=== PATIENT | male | born 1940 | race Caucasian/White ===

== ENCOUNTER → 2023-09-01 12:50 | Outpatient (REF) | payer OTHER, SELFPAY | LOC: RAD 12:50 | PROVIDERS: ATTENDING PHYSICIAN Internal Medicine Geriatric Medicine | DX: E78.2 Mixed hyperlipidemia (principal); I10 Essential (primary) hypertension; Z96.651 Presence of right artificial knee joint; M17.11 Unilateral primary osteoarthritis, right knee; T70.0XXA Otitic barotrauma, initial encounter; Z13.31 Encounter for screening for depression; J96.92 Respiratory failure, unspecified with hypercapnia | CPT/HCPCS: 71046 ==

== ENCOUNTER → 2024-02-09 11:23 | Outpatient (REF) | payer OTHER, SELFPAY ==
[2024-02-09 12:43] LABS: NT-proBNP 97.6 pg/ml
== END ==
LOC: REG 11:23
PROVIDERS: ATTENDING PHYSICIAN Internal Medicine Cardiovascular Disease; FAMILY PHYSICIAN Internal Medicine Geriatric Medicine; REFERRING PHYSICIAN Nurse Practitioner Family
DX: I10 Essential (primary) hypertension (principal); R60.9 Edema, unspecified; R60.0 Localized edema
CPT/HCPCS: 36415; 71046; 83880

== ENCOUNTER → 2024-03-31 08:59 | Outpatient (REF) | payer OTHER, SELFPAY | LOC: RAD 08:59 | PROVIDERS: ATTENDING PHYSICIAN Nurse Practitioner Family; FAMILY PHYSICIAN Internal Medicine Geriatric Medicine | DX: R60.0 Localized edema (principal) | CPT/HCPCS: 93970 ==

== ENCOUNTER → 2024-08-25 07:03 | Outpatient (REF) | payer OTHER, SELFPAY | LOC: HWRCS 07:03 | PROVIDERS: ATTENDING PHYSICIAN Internal Medicine Geriatric Medicine | DX: E66.01 Morbid (severe) obesity due to excess calories (principal); E78.2 Mixed hyperlipidemia; I10 Essential (primary) hypertension | CPT/HCPCS: 78452; 93017; A9500; J2785 ==

== ENCOUNTER 2024-08-25 13:05 | Day surgery (SDC) | payer OTHER, SELFPAY ==
[2024-08-25] VITALS (24 sets, daily range): BP systolic 110–191; BP diastolic 48–88
--- NOTE | 2024-08-25 09:45 | ED.GENMED ---
History of Present Illness
<Homero Isaac Jr., PA-C - Last Filed: 08/25/24 10:53>
General
Chief Complaint: Heart Rate Problem
Source: patient
Exam Limitations: none
Time Seen by Provider: 08/25/24 09:32
Nursing documentation reviewed up to this point in time: agreed with
History of Present Illness
History of Present Illness:
83-year-old male past medical history of hypertension hyperlipidemia presenting to the emergency department after having EKG as an outpatient showing third-degree heart block. He was scheduled to have a stress test today. Had initial preliminary
EKG that showed third-degree heart block EMS was then called he was brought in. He has been asymptomatic throughout the day today. The reason for the stress test was ordered by the primary care doctor with concerns of exertional dyspnea that he
has been having over the past few months. Denies any specific chest pain any recent illness or palpitations. No new medications.
Past History
<Homero Isaac Jr., PA-C - Last Filed: 08/25/24 10:53>
Past History
ED Past Medical History: HTN, Hypercholesterolemia, NIDDM and Other (dvt)
ED Past Surgical History: Orthopedic (Right total knee, Left total knee removed due to infection. Spacer placed)
Social History
Tobacco: Non-smoker
Alcohol: None
Drug: None
Personal:
Living: with family
Review of Systems
<Homero Isaac Jr., PA-C - Last Filed: 08/25/24 10:53>
Review of Systems
Allergies reviewed?: Yes
All Other Systems: ROS reviewed and negative except as documented in HPI and ROS
Phy Exam
<Homero Isaac Jr., PA-C - Last Filed: 08/25/24 10:53>
Physical Exam
Physical Exam:
GENERAL: Alert , in no apparent distress
EYE: pupils equal and reactive
NECK: Supple, no significant adenopathy.
ENT: o/p clr, mmm.
CARDIAC: Heart rate in the 30s
LUNGS: Clear breath sounds bilaterally, no acute respiratory distress, no wheezes/rales/rhonchi
ABDOMEN: Soft, without focal tenderness, no r/g, no cvat
NEUROLOGICAL: Alert and oriented, no focal neuro deficits
SKIN: Warm and dry, skin intact.
MUSCULOSKELETAL: No edema, well perfused.
PSYCH: Normal and appropriate interaction.
Course
<Homero Isaac Jr., PA-C - Last Filed: 08/25/24 10:53>
Orders/Labs/Results
Orders:
Orders
08/25/24 09:32
Electrocardiogram (*1) Urgent
Reason for Study: Bradycardia / Tachycardia
EKG- Treatment ONCE
08/25/24 09:33
Cardiac Monitoring- Treatment ONCE
IV Insert/Care/Rem.- Treatment PRN
08/25/24 09:40
Pro-BNP [NT-proBNP] Urgent
Troponin I Urgent
08/25/24 09:41
Complete Blood Count/With Diff Urgent
Comprehensive Metabolic Panel Urgent
Magnesium Urgent
PTT Urgent
Prothrombin Time Urgent
TSH Reflex To Free T4 Urgent
08/25/24 09:43
CXR Port [CR Chest Portable - 1 View] Urgent
Comment:
Reason For Exam: SOB with exertion
Reason Study Needs to be Portable: Patient Unstable
08/25/24 10:43
CeFAZolin 1 GRAM [Ancef] 1 gram 0.9% Sod Chloride 500 ml Irr [Nss Irrigation Bottle] 500 ml IRRIG CATH
CeFAZolin 2 GRAM [Ancef] 2 grams in 10 ml IV CATH
INT (Intravenous Needle Therapy) As Directed
Comment: #20 gauge IV catheter
Notify MD As Directed
Notify physician if: no consent on chart
Surgical Procedure As Directed
Surgical Procedure: DC PPM
08/25/24 10:44
OR/Surgery Prep As Directed
Type of Prep: cleanse patient with Chlorhexidine gluconate 2%
Abnormal Lab Results
08/25/24
09:41
RBC 4.62 L 10^6/uL
(4.70-6.10)
MCH 31.6 H pg
(27.0-31.0)
Abs Immat Gran (auto) 0.1 H 10^3/uL
(0-0.05)
Absolute Monos (auto) 1.0 H 10^3/uL
(0.1-0.6)
Immature Gran % 0.8 H %
(0-0.5)
Monocytes % 13.2 H %
(1.7-9.3)
Glucose 115 H mg/dl
(70-99)
08/25/24 09:41
08/25/24 09:41
Vital Signs
Initial and Last Documented VS:
Initial Vital Signs
Pulse Resp BP Pulse Ox
31 15 191/61 95
08/25/24 09:37 08/25/24 09:37 08/25/24 09:37 08/25/24 09:37
Last Documented Vital Signs
Temp Pulse Resp BP Pulse Ox
98 F 30 15 147/77 94
08/25/24 09:39 08/25/24 10:15 08/25/24 10:15 08/25/24 10:00 08/25/24 10:15
<Cristi Jung, DO - Last Filed: 08/25/24 10:16>
Orders/Labs/Results
Orders:
Orders
08/25/24 09:32
Electrocardiogram (*1) Urgent
Reason for Study: Bradycardia / Tachycardia
EKG- Treatment ONCE
08/25/24 09:33
Cardiac Monitoring- Treatment ONCE
IV Insert/Care/Rem.- Treatment PRN
08/25/24 09:40
Pro-BNP [NT-proBNP] Urgent
Troponin I Urgent
08/25/24 09:41
Complete Blood Count/With Diff Urgent
Comprehensive Metabolic Panel Urgent
Magnesium Urgent
PTT Urgent
Prothrombin Time Urgent
TSH Reflex To Free T4 Urgent
08/25/24 09:43
CXR Port [CR Chest Portable - 1 View] Urgent
Comment:
Reason For Exam: SOB with exertion
Reason Study Needs to be Portable: Patient Unstable
08/25/24 10:43
CeFAZolin 1 GRAM [Ancef] 1 gram 0.9% Sod Chloride 500 ml Irr [Nss Irrigation Bottle] 500 ml IRRIG CATH
CeFAZolin 2 GRAM [Ancef] 2 grams in 10 ml IV CATH
INT (Intravenous Needle Therapy) As Directed
Comment: #20 gauge IV catheter
Notify MD As Directed
Notify physician if: no consent on chart
Surgical Procedure As Directed
Surgical Procedure: DC PPM
08/25/24 10:44
OR/Surgery Prep As Directed
Type of Prep: cleanse patient with Chlorhexidine gluconate 2%
Abnormal Lab Results
08/25/24
09:41
RBC 4.62 L 10^6/uL
(4.70-6.10)
MCH 31.6 H pg
(27.0-31.0)
Abs Immat Gran (auto) 0.1 H 10^3/uL
(0-0.05)
Absolute Monos (auto) 1.0 H 10^3/uL
(0.1-0.6)
Immature Gran % 0.8 H %
(0-0.5)
Monocytes % 13.2 H %
(1.7-9.3)
Glucose 115 H mg/dl
(70-99)
08/25/24 09:41
08/25/24 09:41
Vital Signs
Initial and Last Documented VS:
Initial Vital Signs
Pulse Resp BP Pulse Ox
31 15 191/61 95
08/25/24 09:37 08/25/24 09:37 08/25/24 09:37 08/25/24 09:37
Last Documented Vital Signs
Temp Pulse Resp BP Pulse Ox
98 F 30 15 147/77 94
08/25/24 09:39 08/25/24 10:15 08/25/24 10:15 08/25/24 10:00 08/25/24 10:15
<Homero Isaac Jr., PA-C - Last Filed: 08/25/24 10:53>
MDM/Problems Addressed
MDM/Problems Addressed:
83-year-old male presenting with concerns of third-degree heart block during outpatient cardiology testing. Patient is currently asymptomatic heart rate in the 30s confirmed third-degree heart block on EKG blood pressure 190s over 60s. Cardiology
immediately contacted and will come see the patient here. Pads placed on arrival. Stable throughout ER stay plan to go directly to the lab for pacer placement.
<Cristi Jung DO - Last Filed: 08/25/24 10:16>
*Interior Design Teacher Interpretation
Rate: bradycardiac
Interpretation: abnormal
Heart Rate: 31
Rhythm: sinus (With third-degree heart block)
*Critical Care Note
Total Time (30-74mins, 75-104mins- exclusive of procedures): 30
comment:
Plan critical care statement: A total of 30 minutes of critical care time was provided for this patient. This includes management of unstable vital signs, evaluation of the patient at bedside, reviewing the patient's pertinent medical records,
discussion with consultants, review of old EKGs and review of pertinent medical records. This time with separate from time utilized to perform the aforementioned documented procedures
ED Attending Note
<Homero Isaac Jr., PA-C - Last Filed: 08/25/24 10:53>
-
Portions of this chart may have been created with voice recognition software.� Occasional wrong word or��sound alike� substitutions may have occurred due to the inherent limitations of voice recognition software.
<Cristi Jung, DO - Last Filed: 08/25/24 10:16>
ED Attending Note
Patient seen and examined by attending physician: Yes
ED Attending Note:
I reviewed and agree with his and treatment plan by Ed JAY Isaac. My exam revealed 83-year-old male no acute distress, bradycardia. Intermittent cough. EKG with third-degree heart block. Pacer pads applied. Blood pressure stable. Cardiac
will evaluate in ED, plan for pacemaker insertion.
Discharge Plan
Departure
Patient Disposition: Admit
Date of Disposition: 08/25/24
Time of Disposition: 10:50
Admit to: Telemetry
Admit to doctor: Chastity
Presentation/result/management discussed w/ accepting MD/DO: Cardiology
Patient with high blood pressure during this ER visit?: No
Condition: Fair
Covid-19: Not Applicable
Discharge Problem:
Third degree heart block
Prescriptions:
No Action
atorvastatin 20 MG tablet
20 mg PO DAILY
enalapril maleate 20 MG tablet
20 mg PO DAILY
diphenhydramine HCl [Sleep Aid (diphenhydramine)] 25 mg Tablet
25 mg PO HS
multivitamin Tablet
1 tab PO DAILY
diphenhydramine-acetaminophen [Tylenol PM Extra Strength] 25-500 mg Tablet
2 tab PO HS PRN (Reason: sleep)
cholecalciferol (vitamin D3) [Vitamin D3] 50 mcg (2,000 unit) Capsule
50 mcg PO DAILY
Referrals:
Jamie Lobo MD [Family Provider] -
Interventions
Interventions:
*Risk Screen - Suicide Last Done: 08/25/24 10:01
*Neglect/Abuse Screening Last Done: 08/25/24 10:01
*ED- Fall Risk Assessment Last Done: 08/25/24 10:01
*ED COVID-19 Vaccine History Last Done: 08/25/24 10:01
ED- Cardiac Assessment Last Done: 08/25/24 10:01
ED- Pulmonary Assessment Last Done: 08/25/24 10:01
Discharge Date and Time
Print Language: ANDORRAN
[2024-08-25 09:59] LABS: % Basophils 0.5 % (0-2); % Eosinophils 2.8 % (0-6); % Immature Granulocytes 0.8 % (0-0.5); % Lymphocytes 27.4 % (20.5-51.1); % Monocytes 13.2 % (1.7-9.3); % Neutrophils 55.3 % (42.2-75.2); Absolute Eosinophils 0.2 10^3/uL (0-0.7); Absolute Immature Granulocytes 0.1 10^3/uL (0-0.05); Absolute Neutrophils 4.1 10^3/uL (1.4-6.5); Hematocrit 43.2 % (39.0-52.0); Hemoglobin 14.6 g/dL (13.0-18.0); Mean Corp Hgb Conc. 33.8 g/dL (33.0-37.0); Mean Corpuscular Hgb 31.6 pg (27.0-31.0); Mean Corpuscular Volume 93.5 fL (80.0-94.0); Mean Platelet Volume 10.4 fL (7.4-10.4); Nucleated Red Blood Cells % 0 % (-); Platelet Count 212 10^3/uL (130-400); Red Blood Cell Count 4.62 10^6/uL (4.70-6.10); Red Cell Dist. Width 13.2 % (11.5-14.5); White Blood Cell Count 7.4 10^3/uL (4.8-10.8)
[2024-08-25 10:10] LABS: APTT 28.3 Sec (23.4-35.0); INR 0.94; PT 13.1 Sec (11.4-14.6)
[2024-08-25 10:13] LABS: ALT (SGPT) 41 U/L (0-50); AST (SGOT) 30 U/L (17-59); Albumin 4.7 g/dl (3.5-5.0); Alkaline Phosphatase 83 U/L (38-126); Blood Urea Nitrogen 17 mg/dl (9-20); Calcium 9.6 mg/dl (8.4-10.2); Carbon Dioxide 25 mmol/L (22-30); Chloride 104 mmol/L (98-107); Glucose 115 mg/dl (70-99); Magnesium 2.1 mg/dl (1.6-2.3); Potassium 4.5 mmol/L (3.5-5.1); Sodium 140 mmol/L (135-145); Total Protein 7.4 g/dl (6.3-8.2); eGFR > 60.00
[2024-08-25 10:45] LABS: TSH Reflex To Free T4 2.69 uIU/ml (0.47-4.68)
[2024-08-25 10:45] LABS: NT-proBNP 284 pg/ml; Troponin I 0.025 ng/ml
--- NOTE | 2024-08-25 10:48 | CON.CAR ---
Consultation
Consultation Request
Date/Time Consultation Requested: 08/25/24
Date/Time Consultation Performed: 08/25/24
Requesting Provider: Poncho THOMPSON in ER
Performing Provider: Dr. Jose Guadalupe Haywood
Reason for Consultation: H&P for complete heart block
Medical History
-
History of Present Illness:
Patient came to ER today from the [facility] cardiology office after he was found to be in complete heart block by ECG performed prior to planned stress test today, cardiology has been consulted in the ER. Patient has a history of first-degree AV block
and RBBB and follows with Dr. Diaz in the office, he was last seen 02/16/2024 and had MARTINEZ and LE edema and there was consideration for repeating a stress test, but patient elected not to proceed after discussing with Dr. Diaz. ECG from 02/16/24
reviewed by me was SR, first degree AVB and RBBB. Patient then saw his PCP 08/12/24 and reported new MARTINEZ described as difficulty climbing a flight of stairs or carrying anything more than 5-10 lbs. Patient was referred for a Lexiscan nuclear stress
test and when he presented to the [facility] office today the ECG showed new complete heart block. The patient denies any CP or resting SOB. Patient was sent via ambulance from [facility] office to ER and telemetry and ECG reviewed by me now shows ongoing
CHB. No recent tick bites or febrile illness.
PMH:
h/o RBBB
h/o First degree AV block
HTN
Chronic LE edema
Suspected ELE
Obese, BMI 37
HTN
Hyperlipidemia
Coronary artery calcification on CXR 02/09/24
Past Medical History
Past Medical History: Other (in HPI)
Past Surgical History: Orthopedic and Other (parotid gland surgery)
Social History
Tobacco: Non-Smoker
Alcohol: None
Drug: None
Personal:
Living: With Family
Family History
Family History: Hypertension and Other (CVA)
Allergies / Home Medications
Allergy/AdvReac Type Severity Reaction Status Date / Time
No Known Allergies Allergy Verified 08/25/24 10:28
�Medication �Instructions �Recorded �Confirmed �Type
atorvastatin 20 mg tablet 20 mg PO DAILY High cholesterol 11/16/19 08/25/24 History
enalapril maleate 20 mg tablet 20 mg PO DAILY Blood pressure 11/16/19 08/25/24 History
diphenhydramine HCl 25 mg tablet 25 mg PO HS Sleep 04/14/23 08/25/24 History
(Sleep Aid (diphenhydramine))
cholecalciferol (vitamin D3) 50 50 mcg PO DAILY 08/25/24 08/25/24 History
mcg (2,000 unit) capsule (Vitamin
D3)
diphenhydramine 25 2 tab PO HS PRN sleep 08/25/24 08/25/24 History
mg-acetaminophen 500 mg tablet
(Tylenol PM Extra Strength)
multivitamin 1 tab PO DAILY 08/25/24 08/25/24 History
Review of Systems
-
History Source: Patient and Family (, Jerilyn, by phone)
All other systems: Negative unless noted
Physical Exam
Vital Signs
Temp Pulse Resp BP Pulse Ox
98 F 30 15 147/77 94
08/25/24 09:39 08/25/24 10:15 08/25/24 10:15 08/25/24 10:00 08/25/24 10:15
GEN: NAD, AAOx3
HEENT: EOMI, MMM
LUNGS: RA. Clear anterolaterally without wheeze
CV: Complete heart block on tele. No murmur
ABD: soft, BS+, NT, ND
EXT: +1-2 B/L LE edema. No clubbing, cyanosis or lesions B/L.
NEURO: Gross non-focal
SKIN: Warm, dry and pink. No rash
Lab Results
08/25/24 09:41
08/25/24 09:41
Troponin I 0.025 ng/ml 08/25/24 09:40
Ejg-M-Dqtmoxzpico Pept 284 pg/ml 08/25/24 09:40
Impression / Plan
-
PCP: Dr. Lobo
Cardiology: Dr. ISHA Diaz
Impression:
Admitted with newly diagnosed complete heart block 08/25/24
MARTINEZ
Cough
h/o RBBB
h/o First degree AV block
HTN
Chronic LE edema
Suspected ELE
Obese, BMI 37
HTN
Hyperlipidemia
Coronary artery calcification on CXR 02/09/24
Echo 04/15/2023: EF 65 to 70%, no MR, no or AI, trace TR
Plan:
-Patient came to ER today from the [facility] cardiology office after he was found to be in complete heart block by ECG performed prior to planned stress test today, cardiology has been consulted in the ER. Patient has a history of first-degree AV
block and RBBB and follows with Dr. Diaz in the office, he was last seen 02/16/2024 and had MARTINEZ and LE edema and there was consideration for repeating a stress test, but patient elected not to proceed after discussing with Dr. Diaz. ECG from
02/16/24 reviewed by me was SR, first degree AVB and RBBB. Patient then saw his PCP 08/12/24 and reported new MARTINEZ described as difficulty climbing a flight of stairs or carrying anything more than 5-10 lbs. Patient was referred for a Lexiscan nuclear
stress test and when he presented to the [facility] office today the ECG showed new complete heart block. The patient denies any CP or resting SOB. Patient was sent via ambulance from [facility] office to ER and telemetry and ECG reviewed by me now shows
ongoing CHB. No recent tick bites or febrile illness.
-ECG and tele reviewed by me that shows complete heart block.
-Talked with patient and his , Jerilyn, by phone and explained previous ECG findings of first degree AVB and RBBB and current CHB findings. Discussed reasoning for PPM and procedure. Discussed activity limitations post-PPM and need for ongoing
outpatient monitoring.
-Patient and asked additional questions which I answered and they are agreeable to proceed with PPM once they meet with EP.
-EF preserved by echo 04/15/23
--- NOTE | 2024-08-25 14:07 | ITS.CL.PACE ---
Vehicle Modification Technician - Pacemaker Implant
Pacemaker Implant
Procedure Report:
PACEMAKER IMPLANT REPORT
Primary Care Provider: Dr Lobo
Primary grease machine worker: Dr ISHA Diaz
Date of Procedure: 08/25/24
Procedure:
Implantation of dual-chamber permanent pacemaker utilizing the left bundle branch for conduction system pacing
Indication/Diagnosis:
Non-reversible symptomatic bradycardia due to third degree atrioventricular block
After informed consent was obtained, 'time out' was called and confirmed, the patient was prepped and draped in a sterile fashion. Lidocaine with epi was used for local anesthesia. Central venous access was obtained via subclavian venipuncture. An
incision was made along the left chest and a pre-pectoral pocket was formed. Using a Seldinger technique and peel-away sheaths, the pacing leads were placed under fluoroscopic guidance.
Fluoroscopy was used to determine likely anatomic site for left bundle branch pacing. The Cartasitetronic C315 sheath was used to deliver the Medtronic 3830 Selectsecure pacing lead with the helix exposed just exposed from the sheath tip during continuous
monitoring when pacemapping the septum during gentle clockwise rotation to obtain a paced QRS morphology of a W pattern in lead V1. Once the suspected optimal site was identified, lead deployment was performed with several rapid rotations as paced
QRS morphology was intermittently monitored until a paced QRS complex in lead V1 demonstrated development of an R wave [ ] (qR or rSR).
Unipolar pacing impedance dropped by approximately 100-200 ohms suggesting it had reached the left ventricular subendocardial.
Stable VEgm injury current is present throughout final lead position including at end of case, suggesting there was no perforation through the septum into the LV cavity.
Unipolar pacing impedance is 800 Ohms
Unipolar pacing threshold is stable at 1 V @ 0.4 ms.
Final conduction system paced QRS complex duration is 103 ms
LVAT is 82 ms and peak V5 -> peak V1 timing is 36 ms
There is QRS transition to LVSP / selective LBBP during threshold testing
Right atrial lead was placed at the RAA.
Once testing (see below) showed adequate and stable function, the leads were secured using the suture sleeves. The pocket was liberally irrigated with antibiotic solution. The leads were connected to the generator header and the leads and
generator were placed within the pocket. Fluoroscopy confirmed stable lead position. The pocket was closed in the typical fashion.
Fluoroscopy was used to guide lead placement.
IMPLANTS:
Medtronic [id number], SN: [id number], Left Pectoral
RA: Medtronic 5076-45, SN: [id number], RAA
Left Bundle: Medtronic 3830 , SN:[id number], Interventricular septum at LBB
DEVICE TESTING:
Sensing: RA 2 mV, RV 5 mV
Capture: RA 0.5 V@0.4ms, RV 0.5 V@0.4ms
Ohms: RA 706, RV 665 (bipolar measurement)
FINAL PROGRAMMING
Kenan Pacing: DDDR 60-130 ppm
COMPLICATIONS:
CONCLUSIONS:
1: Successful implant of dual chamber permanent pacemaker utilizing Left Bundle Branch conduction system capture for ventricular resynchronization pacing.
RECOMMENDATIONS:
1. Post-op care (tele, CXR, IV abx)
2. In-Office wound check in 5-7 days
Copy to:
Dr Lobo
Dr ISHA Diaz
--- NOTE | 2024-08-25 15:35 | PTCARENOTE ---
Assumed care of pt upon tsf from CCL post PPM insertion. Pt arrives on unit with immobilizer to left arm. Pacemaker site CDI with pressure dsg on. VSS, CM shows 100% A/VPacing, Pox 97% on RA. He offers noc/o pain or discomfort at this time.
--- NOTE | 2024-08-25 15:56 | CM ---
Reviewed chart. Met with Mr. Millan to review discharge plans. He states prior to admission he resides with his spouse in an apartment at [facility]. He states he has been there for three years. He states prior to admission he
ambulates with a rolling walker. He states he has a single point cane and rolling walker at home. He states he has has a prescription plan and uses [facility]. The discharge plan is to return home home with his spouse when medically
stable.
--- NOTE | 2024-08-25 19:35 | PTCARENOTE ---
Rec'd pt at change of shift. Pt AAO*3, VSS, and Vpaced on TELE monitor. Left upper chest wall procedure site CDI. Pt BP elevated at 178/70. Dr. Yaritza Jones notified and rec'd order for Metoprolol xl 25 mg and enalapril 10mg via telephone.
Medications given as ordered. Pt reported L knee pain and Roxicodone and Tylenol given together as ordered. Pt resting with call abbott in reach and plan of care ongoing. See flowchart and mar for full pt assessment and care.
[2024-08-25] MEDS: ANCEF 5 IV (20:46)
[2024-08-25] MEDS: VASOTEC 10 MG PO (20:47)
[2024-08-25] MEDS: ROXICODONE 7.5 MG PO (20:47)
[2024-08-25] MEDS: TYLENOL 325 MG PO (20:48)
[2024-08-25] MEDS: TOPROL XL 25 MG PO (21:35)
[2024-08-25] MEDS: BENADRYL 25 MG PO (23:06)
[2024-08-26 03:57] VITALS: BP 158/71
[2024-08-26 03:59] VITALS: BP 158/71
[2024-08-26] MEDS: ANCEF 5 IV (04:02)
[2024-08-26 04:42] LABS: Hematocrit 42.2 % (39.0-52.0); Hemoglobin 14.5 g/dL (13.0-18.0); Mean Corp Hgb Conc. 34.4 g/dL (33.0-37.0); Mean Corpuscular Hgb 31.4 pg (27.0-31.0); Mean Corpuscular Volume 91.3 fL (80.0-94.0); Mean Platelet Volume 10.2 fL (7.4-10.4); Platelet Count 214 10^3/uL (130-400); Red Blood Cell Count 4.62 10^6/uL (4.70-6.10); Red Cell Dist. Width 13.1 % (11.5-14.5); White Blood Cell Count 6.9 10^3/uL (4.8-10.8)
[2024-08-26 05:00] LABS: Blood Urea Nitrogen 16 mg/dl (9-20); Calcium 9.1 mg/dl (8.4-10.2); Carbon Dioxide 22 mmol/L (22-30); Chloride 102 mmol/L (98-107); Estimated Creatinine Clearance 74 ml/min; Glucose 107 mg/dl (70-99); Magnesium 2.1 mg/dl (1.6-2.3); Potassium 4.4 mmol/L (3.5-5.1); Sodium 137 mmol/L (135-145); eGFR > 60.00
[2024-08-26 05:03] VITALS: BMI 36.3
[2024-08-26 07:31] VITALS: BP 164/69
[2024-08-26] MEDS: VASOTEC 10 MG PO (07:39)
[2024-08-26] MEDS: LIPITOR 20 MG PO (07:39)
--- NOTE | 2024-08-26 08:30 | W.PN.CARDCBS ---
Addendum entered and electronically signed by Jose Guadalupe Haywood MD 08/26/24 11:21:
Patient seen, interviewed and examined by me.
He tells me that he is feeling well overall today. No chest pain shortness of breath palpitations or dizziness.
Well-appearing, no acute distress
Dressing over the left upper chest is clean and dry
Regular rate and rhythm with normal S1 and S2, no S3 no S4. There is a grade 1/6 apical holosystolic murmur and no rubs. PMI is normally placed.
Lungs are clear to auscultation bilaterally without wheezes rales or rhonchi.
Abdomen soft nontender nondistended with normoactive bowel sounds
Extremities show trace pretibial edema bilaterally no clubbing or cyanosis.
Neurologic exam is grossly nonfocal.
I reviewed telemetry which finds normal DDD pacing
Chest x-ray no pneumothorax and normal radiographic appearance of the pacemaker generator and leads
Normal function of the recently placed dual-chamber pacemaker and lead system effectively treating his symptomatic complete heart block.
Blood pressure is elevated. Improved with resumption of his outpatient YADY inhibitor dose. Additionally I have added Toprol-XL 25 mg daily.
I called and spoke to his daughter Latoya who is a nurse. We reviewed the discharge instructions. All of her questions have been answered.
Stable for discharge to home today to follow-up with his primary project administrator, Dr. Cordell Diaz
Original Note:
Today's Communication / Plan
-
post DC PPM, stable for d/c home
Impression / Plan
-
PCP: Dr. Lobo
Cardiology: Dr. ISHA Diaz
Impression:
Admitted with newly diagnosed complete heart block 08/25/24
MARTINEZ
Cough
h/o RBBB
h/o First degree AV block
HTN
Chronic LE edema
Suspected ELE
Obese, BMI 37
HTN
Hyperlipidemia
Coronary artery calcification on CXR 02/09/24
Echo 04/15/2023: EF 65 to 70%, no MR, no or AI, trace TR
Plan:
Post DC PPM Medtronic 08/25/24
tele AsVpaced
CXR no PTX, leads in position
site stable with marked old drainage
BP elevated will add metoprolol 25mg daily and continue enalapril
monitor bp at home and bring log to f/u apt
Activity restrictions reviewed
Inc check 1 week at [facility]
home today
-Patient came to ER today from the [facility] cardiology office after he was found to be in complete heart block by ECG performed prior to planned stress test today, cardiology has been consulted in the ER. Patient has a history of first-degree AV
block and RBBB and follows with Dr. Diaz in the office, he was last seen 02/16/2024 and had MARTINEZ and LE edema and there was consideration for repeating a stress test, but patient elected not to proceed after discussing with Dr. Diaz. ECG from
02/16/24 reviewed by me was SR, first degree AVB and RBBB. Patient then saw his PCP 08/12/24 and reported new MARTINEZ described as difficulty climbing a flight of stairs or carrying anything more than 5-10 lbs. Patient was referred for a Lexiscan nuclear
stress test and when he presented to the [facility] office today the ECG showed new complete heart block. The patient denies any CP or resting SOB. Patient was sent via ambulance from [facility] office to ER and telemetry and ECG reviewed by me now shows
ongoing CHB. No recent tick bites or febrile illness.
Progress Note - Hydraulic Press Operator
Subjective
Date of Service: August 26, 2024
denies cp, sob, mild inc pain
Objective
Labs:
08/26/24 04:09
08/26/24 04:09
Labs
Hgb 14.5 g/dL (13.0-18.0) 08/26/24 04:09
Hct 42.2 % (39.0-52.0) 08/26/24 04:09
Plt Count 214 10^3/uL (130-400) 08/26/24 04:09
PT 13.1 Sec (11.4-14.6) 08/25/24 09:41
INR 0.94 08/25/24 09:41
APTT 28.3 Sec (23.4-35.0) 08/25/24 09:41
Sodium 137 mmol/L (135-145) 08/26/24 04:09
Potassium 4.4 mmol/L (3.5-5.1) 08/26/24 04:09
BUN 16 mg/dl (9-20) 08/26/24 04:09
Creatinine 0.9 mg/dL (0.7-1.3) 08/26/24 04:09
Glucose 107 mg/dl (70-99) H 08/26/24 04:09
Troponins
08/25/24
09:40
Troponin I 0.025
Vital Signs and I&O:
Vital Signs
Temp Pulse Resp BP Pulse Ox
97.4 F 60 20 164/69 93
08/26/24 07:30 08/26/24 07:31 08/26/24 07:30 08/26/24 07:31 08/26/24 07:30
Vital Signs
Temp Pulse Resp BP Pulse Ox
97.4 F 60 20 164/69 93
08/26/24 07:30 08/26/24 07:31 08/26/24 07:30 08/26/24 07:31 08/26/24 07:30
Intake & Output
08/24/24 08/25/24 08/26/24 08/27/24
06:59 06:59 06:59 06:59
Intake Total 480 / 480
Output Total 1075 / 1075
Balance -595 / -595
Physical Exam
Physical Exam
NAD, AOx3
S1, S2, RRR
CTAB, non labored, diminished b/l bases
SNTND Bsx4
L CW dressing pressure dressing removed, small area of old drainage marked
--- NOTE | 2024-08-26 08:59 | CM ---
Reviewed chart. Met with Mr. Millan to review discharge plans. He states he is feeling okay and maybe able to go home soon. We reviewed [facility] and he is agreeable to [facility]. [facility].
Sent the referral. Prior to admission he resides with his spouse in an third floor apartment at [facility]. He has been there for three years. Prior to admission he ambulates with a walker. He has a single point cane and
walker at home. The discharge plan is to [facility] with [facility].
--- NOTE | 2024-08-26 13:23 | W.DS.TRANS ---
DC Summary - Calibration Tester
-
Discharge Instructions:
Discharge Diagnosis/Procedures Heart block, post Pacemaker implant
Diet Low Cholesterol
Driving Restrictions No driving for 1 week
Bathing Restrictions OK to Shower
Instructions:
Stand-Alone Forms: DC Inst - Implanted Device
Changes to Home Medications: Yes
Discharge Medications:
DC Medications w/original date entered in [facility]
atorvastatin 20 mg tablet 20 mg PO DAILY High cholesterol 11/16/19
diphenhydramine HCl 25 mg tablet (Sleep Aid (diphenhydramine)) 25 mg PO HS Sleep 04/14/23
cholecalciferol (vitamin D3) 50 mcg (2,000 unit) capsule (Vitamin D3) 50 mcg PO DAILY 08/25/24
diclofenac sodium 1 % topical gel 0 g topical DAILYPRN PRN both knees 08/25/24
enalapril maleate 10 mg tablet 10 mg PO DAILY 08/25/24
multivitamin 1 tab PO DAILY 08/25/24
oxycodone-acetaminophen 7.5 mg-300 mg tablet 1 tab PO Q6HPRN PRN knee pains 08/25/24
metoprolol succinate 25 mg tablet,extended release 24 hr (Toprol XL) 25 mg PO DAILY #90 tabs 08/26/24
Home Medication Changes
new to metoprolol
Pending Results: No
== END 2024-08-26 10:25 | disposition home or self-care (01) ==
LOC: CATH 13:05
PROVIDERS: Nurse Practitioner Adult Health; Physician Assistant; ATTENDING PHYSICIAN Internal Medicine Cardiovascular Disease; EMERGENCY PHYSICIAN Emergency Medicine; FAMILY PHYSICIAN Internal Medicine Geriatric Medicine
DX: I44.2 Atrioventricular block, complete (principal); I10 Essential (primary) hypertension; E78.5 Hyperlipidemia, unspecified; R06.02 Shortness of breath; E66.09 Other obesity due to excess calories; Z68.36 Body mass index [BMI] 36.0-36.9, adult; Z86.718 Personal history of other venous thrombosis and embolism
CPT/HCPCS: 33208; C1769; C1892; C1887; 71045; 80048; 80053; 83735; 83880; 84443; 84484; 85025; 85027; 85610; 85730; 93005; 99291; C1785; C1898

== ENCOUNTER → 2024-09-29 08:19 | Outpatient (REF) | payer OTHER, SELFPAY | LOC: HWRCS 08:19 | PROVIDERS: ATTENDING PHYSICIAN Physician Assistant Medical; FAMILY PHYSICIAN Internal Medicine Geriatric Medicine | DX: R06.09 Other forms of dyspnea (principal); I25.10 Atherosclerotic heart disease of native coronary artery without angina pectoris | CPT/HCPCS: 78452; 93017; A9500; J2785 ==

== ENCOUNTER → 2025-04-25 08:48 | Outpatient (REF) | payer OTHER, SELFPAY | LOC: HWRCS 08:48 | PROVIDERS: ATTENDING PHYSICIAN Internal Medicine Cardiovascular Disease; FAMILY PHYSICIAN Internal Medicine Geriatric Medicine | DX: I45.10 Unspecified right bundle-branch block (principal); I25.10 Atherosclerotic heart disease of native coronary artery without angina pectoris | CPT/HCPCS: 93306 ==